=== PATIENT | female | born 1955 ===

== ENCOUNTER 2021-07-11 05:46 | Day surgery (SDC) | payer OTHER ==
[~2021-07-11 05:46] MED LIST: CLONAZEPAM1 MG PO; COZAAR100 MG PO; OMEPRAZOLE PO; [UNRECOGNIZED DRUG - OTHER] PO
[2021-07-11] MEDS ORDERED: PERCOCET 5-3251 EACH PO (08:42)
== END 2021-07-11 12:30 | disposition home or self-care (01) ==
LOC: CIR.AMB 05:46
PROVIDERS: ATTEND Surgery
DX: K64.8 Other hemorrhoids (principal)